=== PATIENT | female | born 1985 | race African-American/Black ===

== ENCOUNTER 2024-11-06 00:31 | Day surgery (SDC) | payer OTHER, SELFPAY ==
[2024-10-25 13:32] VITALS: BMI 24.5
--- NOTE | 2024-10-25 13:53 | PC.NURSE ---
Report to the Outpatient Waiting Room, entrance under the green pavilion located off [facility], at time _0600AM on 11/06/24 . Planned Procedure Time: _0730AM .? Time changes happen often and if your time is changed the preop area will call you the afternoon before. - You and your visitor will be asked to self-screen and do not enter if you have any COVID symptoms. Please call surgeon if you need to reschedule. - A mask is optional within the hospital at this time. Patients may have clear liquids (water, carbonated beverages, clear teas, apple juice) until 3 hours prior to surgery with a maximum of 20 ounces. - No food from midnight until time of surgery and no smoking, or chewing tobacco (or any form of nicotine). No chewing gum, candy or mints. Take only the following medications with a SIP of water on the morning of surgery: ___TOPIRAMATE, KEPPRA DO NOT STOP ANY OF YOUR OTHER PRESCRIPTION MEDICATIONS PRIOR TO SURGERY EXCEPT THE FOLLOWING Hold all vitamins and supplements for 3 days per anesthesiologist. Medications to discontinue per physician NONE Date to take last dose___NONE Please no make-up, nail french, hairspray, perfume, deodorant, or body powder the day of surgery.? No jewelry (including any body piercings) or valuables the day of surgery, leave them at home.? Please take a shower or bath the night before, or the morning of, surgery with an antibacterial soap.? Wear comfortable, loose fitting clothing.? - Jewelry must be removed prior to entering the operating room.? Rings and piercings that are not removed may be cut off. - The hospital will not accept responsibility for valuables.? - Please leave all valuables, including medications, at home the day of surgery. If you are going home after surgery, a licensed otr driver must drive you home.? - NO public transportation without another adult if you receive anesthesia. - We recommend that an adult stay with you for 24 hours following discharge. - We also recommend that you do not drive, make important decision, drink alcoholic beverages, or take any drugs that were not prescribed by your health care provider for at least 24 hours after your discharge time. Follow any additional instructions given to you from your surgeon. Telephone instructions given to _TOMMY and asked if any additional questions and then verbalized understanding. Patient advised to call surgeon office or pre surgery nurse liaison [phone] if any additional questions.
--- OUTSIDE RECORDS SUMMARY | 2024-11-06 00:34 | XMS_ITS | Clinical Summary ---
Author Organization [facility] Address [address] [facility], [place] [address] Phone Care Team Providers Care Pyridine Operator Name Role Phone [place] Michaud MD Primary Care Provider [phone] Navneet Yeh MD Unavailable [phone] Allergies No known active allergies Medications omeprazole (PRILOSEC) 40 MG CAPSULE DELAYED RELEASE Take 1 Cap by mouth daily. 90 Cap 3 6 Active Additional Information Patient not taking.Reported on 07/05/2024 Multiple Vitamin (MULTIVITAMINS PO) Take 1 Tab by mouth daily. Active IRON PO Take 1 Tab by mouth daily. Active Vit-Fe Fumarate-FA ( VITAMIN PO) Take by mouth. Act cisco VITAMIN D PO Take by mouth. Ac tive SUMAtriptan (IMITREX) 25 MG Tablet Take 1 Tablet by mouth once as needed for Migraine for up to 1 dose. Use as directed. May repeat dose in 2 hours if headache recurs. 9 Tablet 2 2 Active Cholecalciferol (Vitamin D3) 1.25 MG (59219 UT) Capsule Take by mouth. Act cisco Cyclobenzaprine HCl (FLEXERIL PO) Take by mouth. Activ e topiramate (TOPAMAX) 25 MG Tablet Take 1 Tablet by mouth 2 times daily. 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 Thyromegaly 07/09/2015 Generalized convulsive seizure, grand mal Encounters Date Type Department Care Team Description 08/10/2024 [facility] [address] [place] [address] Carolina Ibarra APRN, SECURITY OPERATIONS CENTER ANALYST Medication Refill 08/10/2024 [facility] [address] [place] [address] Carolina Ibarra APRN, SECURITY OPERATIONS CENTER ANALYST Medication Refill 08/10/2024 [facility] [place] [place] [address] Carolina Ibarra APRN, SECURITY OPERATIONS CENTER ANALYST Medication Refill from Last 3 Months Immunizations Immunization Administration Dates Next Due Covid-19, Mrna, Lnp-s, Pf, 3 0 Mcg/0.3 Ml Dose (Umeng) 04/22/2020,04/01/2020 DTP Vaccine 04/25/1989, 7,11/28/1985,1985,07/11/1985 Hepatitis B Vaccine, Pediatric/adolescent 05/15/1997,11/21/1996,10/11/1996 MMR Vaccine 10/29/1997,04/25/1989 OPV 04/25/1989, 7,11/28/1985,1985,07/11/1985 TD VACCINE 11/17/1998 TDAP Vaccine 06/11/2021 Td, Adsorbed, Preservative F ree, Adult Use, Lf Unspecified 06/11/2021 Family History Medical History Relation Name Comments Diabetes Father Hypertension Mother Breast Cancer Other aunt & grandmo ther Breast Cancer Paternal Aunt 1 Breast Cancer Paternal Aunt 2 Breast Cancer Paternal Grandmother Hypertension Sister Relation Name Status Comments Father Alive Mother Alive Other Paternal Aunt 1 Paternal Aunt 2 Paternal Grandmother Sister Social History Tobacco Use Types Packs/Day Years Used Date Smoking Tobacco: Never Smokeless Tobacco: Never Tobacco Cessation:Counseling Given: Not Answered Alcohol Use Standard Drinks/Week Comments Not Currently 0 (1 standard drink = 0.6 oz pur e alcohol) Comments No Sex and Gender Information Value Date Recorded Sex Assigned at Not on file Legal Sex Female 10:26 PM CDT Gender Identity Not on file Sexual Orientation Not on file 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 Not on file Not o n file Last Filed Vital Signs Vital Sign Reading Time Taken Comments Blood Pressure 118/76 07/05/2024 10:59 AM CDT Pulse 80 07/05/2024 10:59 AM CDT Temperature 36.6 C (97.9 F) 07/05/2024 10:59 AM CDT Respiratory Rate 16 07/05/2024 10:59 AM CDT Oxygen Saturation 99% 07/05/2024 10:59 AM CDT Inhaled Oxygen Concentration - - Weight 69 kg (152 lb 3.2 oz) 07/05/2024 10:59 AM CDT Height 170.2 cm (5' 7) 07/05/2024 10:59 AM CDT Body Mass Index 23.84 07/05/2024 10:59 AM CDT Plan of Treatment Upcoming Encounters Date Type Department Care Team (Late st Contact Info) Description 07/04/2025 11:00 AM CDT Office Visit [facility] [address] [place] [phone] Navneet Yeh MD [address] [place] [address] Health Maintenance Due Date Last Done Comments Pap Smear 2005 Human Papillomavirus (HPV) Immunization (1 - 3-dose SCDM series) 12/22/2011 Cervical Cancer Screening (CCS) 2014 HPV/Cotest 2014 Influenza Immunization (#1) 2024 SARS-COV-2 Immunization ( season) 2024 04/03/2021, 04/22/2020, 04/01/2020 DTaP/Tdap/Td Immunization (7 - Td or Tdap) 06/12/2031 06/11/2021, 11/17/1998, 04/25/1989, Additional history exists Respiratory Syncytial Virus (RSV) Immunization (Adult) (1 - 1-dose 75+ series) 12/22/2059 Hepatitis B Immunization Completed 998, 11/21/1996, 10/11/1996 TdaP Immunization Discontinued 06/11/2021 Hepatitis C Virus (HCV) Screening Completed 09/15/2023, 09/10/2022 Meningococcal Immunization (ACWY) Aged Out No longer eligible based on patient's age to complete this topic Pneumococcal Immunization Combined Aged Out No longer eligible based on patient's age to complete this topic Rotavirus Immunization Aged Out No lo nger eligible based on patient's age to complete this topic Insurance [facility] Care Teams Pyridine Operator Relationship Specialty Start Date End Date [place] Michaud MD [address] [place] [address] PCP - General Family Medicine 04/22/15 Navneet Yeh MD [address] [place] [address] Consulting Physician Neurology 06/25/21
--- OUTSIDE RECORDS SUMMARY | 2024-11-06 00:34 | XMS_ITS | Encounter Summary ---
Author Organization [facility] Address [address] [facility] [place] [address] Phone Care Team Providers Care Email Specialist Name Role Phone [place] Michaud MD Primary Care Provider [phone] Navneet Yeh MD Unavailable [phone] Reason for Referral * PT/OT/ST (Routine) - Authorized Specialty Diagnoses / Procedures Referred By Melissa t Referred To Contact Physical Therapy Diagnoses Pain in right arm [place] Michaud MD [address] [place] [address] [address] [facility] [place] [place] [address] Phone: tel: fax: [facility] [address] [address] Phone: tel: fax: Referral ID Status Reason Start Date Expiration Date V isits Requested Visits Authorized [id number] Authorized 04/13/2024 50 60 Scheduling Instructions PMENT DRIVER Encounter Details Date Type Department Care Team (Late st Contact Info) Description 04/13/2024 Transcribe Orders [facility] [address] [place] [address] [place] Michaud MD [address] [facility] [place] [address] Pain in right arm (Primary Dx) Social History Tobacco Use Types Packs/Day Years Used Date Smoking Tobacco: Never Smokeless Tobacco: Never Alcohol Use Standard Drinks/Week Comments Not Currently 0 (1 standard drink = 0.6 oz pur e alcohol) Comments No Sex and Gender Information Value Date Recorded Sex Assigned at Not on file Legal Sex Female 10:26 PM CDT Gender Identity Not on file Sexual Orientation Not on file 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 Not on file Not o n file documented as of this encounter Plan of Treatment Upcoming Encounters Date Type Department Care Team (Late st Contact Info) Description 07/04/2025 11:00 AM CDT Office Visit [facility] - [facility]rology [facility] [address] [place] [address] Navneet Yeh MD [address] [place] [address] Scheduled Referrals Name Type Priority Associated Diagnoses Orde r Schedule PHYSICAL THERAPY REFERRAL Outpatient Referral Routine Pain in right arm Expected: 04/13/2024, Expires: 04/13/2025 documented as of this encounter Visit Diagnoses Diagnosis Pain in right arm- Primary documented in this encounter Care Teams Email Specialist Relationship Specialty Start Date End Date [place] Michaud MD [address] [facility] [facility] [address] [place] [address] PCP - General Family Medicine 04/22/15 Navneet Yhe MD [address] [place] [phone] Consulting Physician Neurology 06/25/21 documented as of this encounter
--- OUTSIDE RECORDS SUMMARY | 2024-11-06 00:34 | XMS_ITS | Clinical Summary ---
Author Organization [facility] Address [address] [facility] [facility] [place] [address] Care Team Providers Care Library Assistant Name Role Phone [place] Michaud MD Primary Care Provider [phone] Source Comments [facility],non-owned Affiliates and Associated Physician Practices is amultiple site organization consisting of ambulatory clinics and hospital sitesin [place], [place], [place] and [place]. This disclosure is being madepursuant to the Care Everywhere program and may not contain all information available regarding this patient. Last updated 17.[facility] Allergies No known active allergies Social History Tobacco Use Types Packs/Day Years Used Date Smoking Tobacco: Never Assessed Comments Unknown Sex and Gender Information Value Date Recorded Sex Assigned at Not on file Legal Sex Female 6:28 AM ILLUMINATOR Gender Identity Not on file Sexual Orientation Not on file Plan of Treatment Health Maintenance Due Date Last Done Comments HIV SCREENING 12/22/1999 HEPATITIS C SCREENING 12/17/2002 DTAP/TDAP/TD VACCINES (1 - Tdap) 12/22/2003 HEPATITIS B VACCINE (1 of 3 - 19+ 3-dose series) 12/22/2003 HPV VACCINE (1 - 3-dose SCDM series) 12/22/2011 DEPRESSION SCREENING 02/22/2024 COVID-19 VACCINE (3 - 2024-2 6 season) 2024 04/22/2020, 04/01/2020 INFLUENZA VACCINE (#1) 2024 ZOSTER VACCINE (1 of 2) 2034 HIB VACCINE Aged Out No longer eligi ble based on patient's age to complete this topic MENINGOCOCCAL (Group B) VACCINE SHARED DECISION-MAKING Aged Out No longer eligible based on patient's age to complete this topic MENINGOCOCCAL GROUPS A/C/Y/W VACCINE Aged Out No longer eligible b ased on patient's age to complete this topic PNEUMOCOCCAL VACCINE Aged Out No long er eligible based on patient's age to complete this topic Insurance MEDICAID [facility] [place]ICAID - [place] Care Teams Library Assistant Relationship Specialty Start Date End Date [place] Michaud MD [address] [place] [address] PCP - General Family Medicine 06/09/21
--- OUTSIDE RECORDS SUMMARY | 2024-11-06 00:34 | XMS_ITS | Clinical Summary ---
Author Organization [facility] Address [address] [place] [address] Care Team Providers Care Direct Sales Consultant Name Role Phone [place] Michaud MD Primary Care Provider [phone] Allergies No known active allergies Medications pediatric multivitamin tablet,chewable Take by mouth daily Active meclizine (ANTIVERT) 25 mg tabletIndication s:Vertigo Take 1 tablet (25 mg total) by mouth 3 (three) times a day as needed for dizziness 30 tablet 1 Active bacitracin 500 unit/gram ointment Apply topically 2 (two) times a day 120 g 2 Active methocarbamoL (ROBAXIN) 500 mg tablet Take 1 tablet (500 mg total) by mouth 2 (two) times a day 20 tablet 3 Active Additional Information Patient not taking.Reported on 10/19/2023 lidocaine (LIDODERM) 5 %Indications:Radha n Place 1 patch on the skin daily Use patch for 12 hours on, 12 hours off. Discard after each use 7 patch 3 Active cyclobenzaprine (FLEXERIL) 10 mg tablet Take 1 tablet (10 mg total) by mouth nightly for 20 doses 20 tablet 4 Active levETIRAcetam (KEPPRA) 750 mg tablet Take 1 tablet (750 mg total) by mouth 2 (two) times a day Active pantoprazole DR (PROTONIX) 40 mg EC tabletIndication s:Laryngopharyng eal reflux (LPR) Take 1 tablet (40 mg total) by mouth daily 90 tablet 3 4 Active famotidine (PEPCID) 40 mg tabletIndication s:Laryngopharyng eal reflux (LPR) Take 1 tablet (40 mg total) by mouth nightly 90 tablet 3 4 Active naproxen (NAPROSYN) 500 mg tablet Take 1 tablet (500 mg total) by mouth 2 (two) times a day with meals for 15 days Start on 04/06. Do not take with other NSAIDS such as ibuprofen. 30 tablet 5 Active Active Problems Problem Noted Date Diagnosed Date Laryngopharyngeal reflux (LPR) 10/19/2023 Assessment & Plan (10/19/2023 11:20 AM CDT): Take Pantoprazole 40 mg (Protonix) 30-60 minutes prior to any other medication, food or fluids other than water Take Pepcid 40 mg (famotidine) at bedtime Esophagram, consider GI referral based on these findings Laryngopharyngeal reflux discussed and Handout provided Pharyngoesophageal dysphagia 10/19/2023 Assessment & Plan (10/19/2023 11:20 AM CDT): Take Pantoprazole 40 mg (Protonix) 30-60 minutes prior to any other medication, food or fluids other than water Take Pepcid 40 mg (famotidine) at bedtime Esophagram, consider GI referral based on these findings Lumbar strain, initial encounter 07/24/2018 History of anemia 07/24/2018 Viral syndrome 03/08/2017 Influenza-like illness 03/08/2017 Fever 03/08/2017 Nausea 03/08/2017 Cerebrovascular accident (CVA) 09/05/2014 Overview (05/28/2016): Stroke Immunizations Immunization Administration Dates Next Due Tdap 06/11/2021 Surgical History Surgery Date Site/Laterality Comments BACK SURGERY Medical History Medical History Date Comments Stroke (HCC) Epilepsy (HCC) Family History Medical History Relation Name Comments Breast cancer Father's Sister 1 olvin Breast cancer Father's Sister 2 jorge Breast cancer Paternal Grandmother nikky Relation Name Status Comments Father's Sister 1 olvin Father's Sister 2 jorge Paternal Grandmother nikky Social History Tobacco Use Types Packs/Day Years Used Date Smoking Tobacco: Never Smokeless Tobacco: Never Tobacco Cessation:Counseling Given: Not Answered Alcohol Use Standard Drinks/Week Comments Yes 0 (1 standard drink = 0.6 oz pur e alcohol) occassional Personal Safety Answer Date Recorded Have you ever been in or are you currently in a harmful physical or emotional relationship or is someone making you feel afraid or unsafe? Denies 04/04/2024 Comments No Sex and Gender Information Value Date Recorded Sex Assigned at Not on file Legal Sex Female 12:59 PM DESIGN PROJECT MANAGER Gender Identity Not on file Sexual Orientation Not on file Obstetrics History Para Term AB IAB SAB Ectopic Multiple Livin g Live Births 3 3 3 Date Outcome GA Total Labor Labor//3rd Weight Sex Type Anes PTL Riddhi A1 A5 Name Clin Term Term Term Last Filed Vital Signs Vital Sign Reading Time Taken Comments Blood Pressure 129/82 04/04/2024 7:10 PM DESIGN PROJECT MANAGER Pulse 73 04/04/2024 7:10 PM DESIGN PROJECT MANAGER Temperature 36.8 C (98.3 F) 04/04/2024 2:24 PM DESIGN PROJECT MANAGER Respiratory Rate 16 04/04/2024 2:24 PM DESIGN PROJECT MANAGER Oxygen Saturation 98% 04/04/2024 7:10 PM DESIGN PROJECT MANAGER Inhaled Oxygen Concentration - - Weight 68.9 kg (152 lb) 04/04/2024 2:24 PM DESIGN PROJECT MANAGER Height 168.9 cm (5' 6.5) 04/04/2024 2:24 PM DESIGN PROJECT MANAGER Body Mass Index 24.17 04/04/2024 2:24 PM DESIGN PROJECT MANAGER Plan of Treatment Health Maintenance Due Date Last Done Comments Cervical Cancer Screening 1984 Depression Screening 1984 Hepatitis C Screening 1984 Varicella Vaccines (1 of 2 - 13+ 2-dose series) 1997 Regular Well Visit/Exam 18-64 2002 HPV Vaccines (1 - 3-dose SCDM series) 12/22/2011 Breast Cancer Screening-Mammogram 09/19/2024 09/20/2023, 07/22/2022, 04/05/2020, Additional history exists Covid-19 Vaccine ( - season) 2024 04/22/2020, 04/01/2020 Influenza Vaccine (#1) 2024 DTaP/Tdap/Td Vaccine (7 - Td or Tdap) 06/12/2031 06/11/2021, 06/11/2021, 11/17/1998, Additional history exists Hepatitis B Screening Completed 05/15/1997 , 11/21/1996, 10/11/1996 Pneumococcal vaccine <65 Aged Out No longer eligible based on patient's age to complete this topic Procedures Procedure Name Priority Date/Time Associated Diagnosis Comments SCREENING MAMMOGRAM BILATERAL W ELIU Schedule Routine, Read Routine (OP Routine) 09/20/2023 4:28 PM CDT Screening mammogram, encounter for from Last 3 Months or Most Recently Relevant to Health Maintenance Results * Screening Mammogram Bilateral W Eliu (09/20/2023 4:28 PM CDT) Anatomical Region Laterality Modality Breast Bilateral Mammography 09/20/2023 5:02 PM CDT Impressions 09/20/2023 5:02 PM CDT There is no mammographic evidence of malignancy. A 1 year screening mammogram is recommended. BI-RADS: 1 - Negative. The patient has been or will be contacted. The patient will be entered into a reminder system with a target due date of 1 year for her next mammogram. Electronically signed by: DINORAH Cartagena 09/20/2023 5:02 PM CDT EXAMINATION: SCREENING MAMMOGRAM BILATERAL W ELIU ORDERING HEALTHCARE PROVIDER: SELF SCREENING MAMMOGRAM HISTORY: Routine screening mammography. COMPARISON: 07/22/2022, 04/05/2020, 05/12/2018. TECHNIQUE: CC and MLO views of both breasts were obtained with digital technique using digital breast tomosynthesis with C view. Computer aided detection was utilized. FINDINGS: DENSITY: The breasts are extremely dense, which lowers the sensitivity of mammography. BREASTS: There is no new suspicious finding in either breast on mammogram. us Self Screening Mammogram IMG MAMMO PROCEDURES Fi nal Result from Last 3 Months or Most Recently Relevant to Health Maintenance Insurance [employer]PA [employer] PPO IDPA [employer] PPO [facility] [address] [facility] Care Teams Direct Sales Consultant Relationship Specialty Start Date End Date [place] Michaud MD PCP - General 09/24/14
--- OUTSIDE RECORDS SUMMARY | 2024-11-06 00:34 | XMS_ITS | Encounter Summary ---
Author Organization [facility] Address [address] [place] [address] Phone Care Team Providers Care Medical Fee Clerk Name Role Phone [place] Michaud MD Primary Care Provider [phone] Navneet Yeh MD Unavailable Reason for Visit * Reason Comments Medication Refill Encounter Details Date Type Department Care Team (Late st Contact Info) Description 08/10/2024 Refill [facility] - Neurology [facility] [address] [place] [phone] [place] Ibarra, ASSISTANT SPA DIRECTOR, HYDRAULIC TECHNICIAN [address] [place] [address] Medication Refill Social History Tobacco Use Types Packs/Day Years [...] 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 Not on file Not o n file documented as of this encounter Plan of Treatment Upcoming Encounters Date Type Department Care Team (Late st Contact Info) Description 07/04/2025 11:00 AM CDT Office Visit [facility] - [place] [address] [place] [address] Navneet Yeh MD [address] [place] [address] documented as of this encounter Visit Diagnoses Not on filedocumented in this encounter Care Teams Medical Fee Clerk Relationship Specialty Start Date End Date [place] Michaud MD [address] [facility] [place] [address] PCP - General Family Medicine 04/22/15 Navneet Yeh MD [address] [place] [address] Consulting Physician Neurology 06/25/21 documented as of this encounter
--- OUTSIDE RECORDS SUMMARY | 2024-11-06 00:34 | XMS_ITS | Encounter Summary ---
Author Organization [facility] Address [address] 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 Not on file Not o n file documented as of this encounter Plan of Treatment Upcoming Encounters Date Type Department Care Team (Late st Contact Info) Description 07/04/2025 11:00 AM CDT Office Visit [facility] - [place] [address] [place] [address] Navneet Yeh MD [address] [place] [address] documented as of this encounter Visit Diagnoses Not on filedocumented in this encounter Care Teams Steam Shovelman Relationship Specialty Start Date End Date [place] Michaud MD [address] [facility] [address] [place] [address] PCP - General Family Medicine 04/22/15 Navneet Yeh MD [address] [place] [address] Consulting Physician Neurology 06/25/21 documented as of this encounter
[2024-11-06 06:30] VITALS: BP 116/71; PULSE 72; RESP 16; TEMP 37; O2SAT 100
[2024-11-06] MEDS: LACTATED RINGERS 1,000 ML 30 ML IV CONT (06:30)
--- NOTE | 2024-11-06 06:54 | WPDANESEPPF ---
Anes - Initial Pre Proc Eval Procedure: Operation Date: 11/06/24 07:30 Proposed Procedures p Hysteroscopy, Biopsy of Endometrium and/or Polypectomy - Faisal Horn MD Date/Time: 11/06/24 06:54 Surgeon: Faisal Horn MD Pre Op Diagnosis: endocervical polyp Patient Data Age: 38 Gender: F Height: 1.69 m Weight: 70 kg Allergies Allergy/AdvReac Type Severity Reaction Status Date / Time No Known Drug Allergies Allergy Verified 02/07/13 13:38 Home Medications ?Medication ?Instructions ?Recorded ?Confirmed ?Type ergocalciferol (vitamin D2) 1,250 1,250 mcg PO WEEKLY 10/25/24 10/25/24 History mcg (50,000 unit) capsule levetiracetam 750 mg tablet 750 mg PO Q12H 10/25/24 10/25/24 History topiramate 25 mg tablet 25 mg PO DAILY PRN headache 10/25/24 10/25/24 History Patient hx anesthesia problems: none Family hx anesthesia problems: none Results Review: All pre-operative results and documents have been reviewed as part of the pre-operative evaluation. [facility] Past Medical History Medical History (Updated 11/06/24 @ 06:58 by Lloyd Lan MD) History of CVA (cerebrovascular accident) Seizures Social History Social History Smoking status: Never smoker Second hand tobacco smoke exposure: No Alcohol intake: current Substance use: never Substance use type: does not use Living arrangements: with family Spiritual care concerns: No Anes - Eval Final PreProcedure Day of Procedure 11/06/24 06:54 Patient weight: normal Heart: regular rate and rhythm Lungs: clear to auscultation Airway: Mallampati scale class II Neurological: alert and oriented Last oral intake: >/= 8 hours ASA classification: III Emergent: no Anesthetic plan: proceed Anesthesia type and monitoring: general GIVS and standard monitoring Results Review: All pre-operative results and documents have been reviewed as part of the pre-operative evaluation. Informed Consent: The patient's anesthetic plan and its attendant risks and benefits were discussed with the patient/family/POA. Questions were solicited and answers provided to the satisfaction of the patient/family/POA.
--- NOTE | 2024-11-06 07:23 | PM.IMHP ---
H&P: HPI History of Present Illness Date/Time: 11/06/24 07:23 Chief Complaint: Menorrhagia Narrative: This patient is a 38-year-old female with menorrhagia and endometrial polyp. We agreed to perform hysteroscopy D&C with polypectomy. She understands risks, benefits, and alternatives. She has complete informed consent process is ready to proceed. The patient understands the details of the procedure. The procedure has been explained in detail. She understands the risks. She understands that injuries may occur that result in hospitalization, more surgery, and severe illness. She understands risk of hemorrhage and infection. She denies any chest pain or shortness of breath. She denies any nausea, vomiting, fever, chills. Review of Systems Review of Systems: All systems reviewed & are unremarkable except as noted in HPI and below Constitutional: Constitutional: Denies chills, Denies fatigue, Denies fever(s) and Denies weakness Eyes: Eyes: Denies blurry vision, Denies change in vision, Denies loss of peripheral vision, Denies loss of vision, Denies other visual disturbances and Denies eye pain ENT: Denies vertigo, Denies dizziness, Denies hearing loss, Denies mouth pain, Denies nasal obstruction, Denies neck mass and Denies neck pain Cardiovascular: Cardiovascular: Denies chest pain, Denies diaphoresis, Denies syncope, Denies leg edema and Denies dyspnea Respiratory: Respiratory: Denies chest congestion, Denies cough, Denies hemoptysis, Denies dyspnea and Denies wheezing Gastrointestinal: Gastrointestinal: Denies abdominal pain, Denies constipation, Denies diarrhea, Denies nausea and Denies vomiting Genitourinary: Genitourinary: Denies hematuria, Denies change in libido, Denies nocturia, Denies genital lesions, Denies flank pain and Denies urinary urgency Musculoskeletal: Musculoskeletal: Denies abnormal gait, Denies back pain, Denies myalgias, Denies arthralgias, Denies joint swelling, Denies muscle weakness and Denies neck pain Integumentary/Breasts: Skin/Breast: Denies swelling, Denies breast pain, Denies breast mass, Denies dry skin, Denies nipple discharge, Denies unusual bruising and Denies jaundice Neurologic: Denies Neuro-related abnormal movements, Denies Abnormal speech present, Denies abnormal gait, Denies behavioral changes, Denies confusion, Denies vertigo, Denies dizziness, Denies syncope, Denies loss of vision, Denies memory loss, Denies convulsions and Denies weakness Psychiatric: Psychiatric: Denies abnormal sleep pattern, Denies behavioral changes, Denies change in libido, Denies confusion, Denies depression, Denies anhedonia and Denies memory loss Endocrine: Endocrine: Reports no additional endocrine complaints, Denies change in libido and Denies fatigue Hematologic/Lymphatic: Hematologic/Lymphatic: Reports no additional hematologic/lymphatic complaints Allergic/Immunologic: Allergic/Immunologic: Reports no additional allergic/immunologic complaints and Denies wheezing [facility] Past Medical History Medical History (Updated 11/06/24 @ 07:24 by Faisal Horn MD) History of CVA (cerebrovascular accident) Seizures Social History Social History Smoking status: Never smoker Second hand tobacco smoke exposure: No Alcohol intake: current Substance use: never Substance use type: does not use Living arrangements: with family Spiritual care concerns: No Meds Home Medications and Allergies Home Medications ?Medication ?Instructions ?Recorded ?Confirmed ?Type ergocalciferol (vitamin D2) 1,250 1,250 mcg PO WEEKLY 10/25/24 10/25/24 History mcg (50,000 unit) capsule levetiracetam 750 mg tablet 750 mg PO Q12H 10/25/24 10/25/24 History topiramate 25 mg tablet 25 mg PO DAILY PRN headache 10/25/24 10/25/24 History Allergies Allergy/AdvReac Type Severity Reaction Status Date / Time No Known Drug Allergies Allergy Verified 02/07/13 13:38 Exam Const: General: cooperative, healthy appearing, comfortable and no acute distress Orientation/consciousness: oriented to person, oriented to place and oriented to time HENMT: Head: normal to inspection Ears: external ears normal Face/Nose/Sinus: Normal external nose present and normal facial exam Face and sinus: normal facial exam Eyes: General: appearance normal, both eyes and all related structures Neck: Neck: normal visual inspection, trachea midline and supple Resp: Auscultation: clear to auscultation bilaterally, no crackles, no rales, no rhonchi and no wheezes Cardio: Rate: regular rate Rhythm: regular rhythm Heart sounds: no click, no murmurs and no rubs GI: GI Palp: No abdominal tenderness, No Soft to palpation, No Tenderness to palpation present (GI) and No Palpable mass present Auscultation: normal bowel sounds Skin: General skin exam: normal color and no rashes or lesions noted Neuro: General: oriented to person, oriented to place and oriented to time Extrem: General: normal to inspection, no joint enlargement, no clubbing, cyanosis or edema, no pedal edema and no calf tenderness Psych: Appearance: grossly normal Mental Status: mental status grossly normal Speech and movement: Normal speech and movement present Assessment and Plan Assessment and plan (1) Endometrial polyp: Code(s): N84.0 - Polyp of corpus uteri Status: Acute Assessment and Plan: This patient is a 38-year-old female with menorrhagia and endometrial polyp. We agreed to perform hysteroscopy D&C with polypectomy. She understands risks, benefits, and alternatives. She has complete informed consent process is ready to proceed.
--- NOTE | 2024-11-06 07:26 | WPDHPUPDATE1 ---
History and Physical Update Update Date/Time: 11/06/24 07:26 History and Physical has been reviewed, including an updated exam of the patient. There are NO changes in the patient's condition. Risks, benefits, and alternatives have been discussed and questions answered. Patient agrees to proceed with procedure.
[2024-11-06] MEDS: ACETAMINOPHEN 500 MG TABLET 1000 MG PO (07:36)
[2024-11-06 07:38] LABS: BEDSIDEPREGUCG Negative (Negative)
--- NOTE | 2024-11-06 07:58 | S_PTH ---
PATIENT: Latrice Polk LOC: [facility] U#:[id number] AGE/SX: 38/F ROOM: RE11/06/[address]: Faisal Horn MD : 1985 BED: DIS: 11/06/2024 SPEC #: [id number] RECD: 11/06/24 08:33 STATUS: RANJANA REQ #: [id number] SAL: 11/06/24 07:[address]: Faisal Horn DEPT: [facility] Surgical RECD BY: Michelle Chambers MLT, ([facility]) ENTERED: 11/06/24 08:33 SP TYPE: Surgical OTHR DR: Chandler MichaudMD Tissues: A - Endometrial Curettings Procedures: Hematoxylin and Eosin Stain Gross and Microscopic Level 4
[2024-11-06 08:08] VITALS: BP 104/56; PULSE 84; RESP 15; O2SAT 100
--- NOTE | 2024-11-06 08:19 | W.PM.PROC2 ---
Procedure Note - Detailed Date of Procedure 11/06/24 Pre-op Diagnosis endocervical polyp Post-op Diagnosis Same Procedure Performed Hysteroscopy D&C with polypectomy Surgeon Faisal Horn MD Anesthesia MAC Indications abnormal uterine bleeding Findings Thickened endometrium with some polypoid tissue present and sampling. Normal vulva, vagina, cervix Description of Procedure the patient was taken the operating room. She was prepped and draped in the dorsal lithotomy position after induction of mac anesthesia. A speculum was placed in the vagina. The cervix was grasped with a tenaculum. The cervix was dilated about 1 cm. The hysteroscope was inserted. The intrauterine cavity and endocervix were evaluated. Hysteroscope was withdrawn. A medium-size curette was used to curettage all the surfaces were within the endometrial cavity. the sample was collected on Telfa and sent to pathology. The hysteroscope was reinserted and the above findings were noted. Rotational blade was used to resect fibrous redundant tissue on the anterior posterior endometrial surfaces. Patient tolerated the procedure well. The speculum and tenaculum were removed. She was taken recovery room in stable condition. Sponge lap and needle counts were correct x2. Estimated Blood Loss 40 Drains No Packing No Pathology Yes Complications No immediate complications Condition Stable Disposition PACU
[2024-11-06 08:35] VITALS: BP 104/56; PULSE 85; RESP 20
[2024-11-06 09:05] VITALS: BP 106/64; PULSE 87; RESP 20
== END 2024-11-06 09:08 | disposition home or self-care (01) ==
PROVIDERS: PCP Family Medicine; Visit Provider Obstetrics & Gynecology
PROC: 0U5B8ZZ Destruction of Endometrium, Via Natural or Artificial Opening Endoscopic (ICD-10-PCS; CPT 58563; principal; 2024-11-06 07:30)
DX: N84.0 Polyp of corpus uteri (principal); R56.9 Unspecified convulsions; Z86.79 Personal history of other diseases of the circulatory system
CPT/HCPCS: 58558; 88305; A9270; J1885; J2003; J2250; J2704; J3010; J7120